=== PATIENT | female | born 1990 | race Two or more races ===

== ENCOUNTER 2016-12-17 20:26 | Emergency (ER) | payer SELFPAY ==
[~2016-12-17] VITALS: Ht 160 cm; Wt 45.8 kg
[2016-12-17 21:14] VITALS: BP 114/79
[2016-12-17] MEDS ORDERED: Dicyclomine HCl 10mg/5ml oral soln ORAL ONE (21:30)
[2016-12-17] MEDS ORDERED: Loperamide 2mg cap ORAL ONE (21:30)
[2016-12-17 21:47] VITALS: BP 108/7
[2016-12-17 21:48] VITALS: BP_SYST 103; BP_SYST 120; BP_DIAS 53; BP_DIAS 70
[2016-12-17] MEDS ORDERED: BENTYL10 MG ORAL (21:50)
[2016-12-17] MEDS ORDERED: LOPERAMIDE2 MG PO (21:50)
[2016-12-17 21:57] VITALS: BP 103/53
--- NOTE | 2016-12-17 22:23 | Emergency Room Report ---
History of Present Illness General Chief Complaint: Diarrhea Source: Patient Present Illness HPI Patient is a 26-year-old female presented after increased diarrhea. Patient gradual onset of symptoms over the past few days. Patient reported having intermittent crampy abdominal pain to the lower abdomen. Patient any fever. She not been having any vomiting. She denied any recent food exposure. Patient recently traveled from . She denied any recent antibiotic use. She denied being . She denied feeling dizzy or lightheaded. Allergies: Coded Allergies: No Known Allergies (Unverified , 12/17/16) Patient History Past Medical History: see triage record Last Menstrual Period: 10 DAYS AGO Now: No : 0 Para: 0 Reviewed Nursing Documentation: PMH: Agreed, PSxH: Agreed Nursing Documentation-PMH Past Medical History: No Stated History Review of Systems All Other Systems: negative except mentioned in HPI Physical Exam Vital Signs Date Time Temp Pulse Resp B/P Pulse Ox O2 Delivery O2 Flow Rate FiO2 12/17/16 21:02 98.1 92 18 111/77 100 Room Air General Appearance: well appearing, no apparent distress, alert, GCS 15 Head: normocephalic, atraumatic ENT: hearing grossly normal, normal voice Neck: full range of motion, supple Respiratory: no respiratory distress, speaking full sentences Cardiovascular #1: normal inspection, regular rate, rhythm Gastrointestinal: normal inspection, non tender, soft Musculoskeletal: normal inspection, back normal, gait/station normal, no calf tenderness Neurologic: normal inspection, alert, oriented x3, responsive, normal gait Psychiatric: mood/affect normal Skin: no rash Medical Decision Making Diagnostic Impression: Primary Impression: Gastroenteritis ER Course Patient presented for abdominal pain. Differential diagnoses included ischemic bowel, appendicitis, perforated viscus, abdominal aortic aneurysm, inferior myocardial infarction, viral gastroenteritis Patient's benign exam and does not appear to require any further imaging or laboratory testing at this time. A urine test was negative. Patient was given Bentyl as well as Imodium. Patient appears to have viral gastroenteritis. Orthostatic vitals were unremarkable. The patient was given prescriptions for Imodium as well as Bentyl. The patient is advised to return if she began having persistent vomiting high fever or bloody stools or other concerns. She is advised dietary modification. Labs Test 12/17/16 21:16 Urine HCG, Qualitative Negative Last Vital Signs Date Time Temp Pulse Resp B/P Pulse Ox O2 Delivery O2 Flow Rate FiO2 12/17/16 21:57 97.9 87 17 103/53 100 Room Air Status: improved Disposition: HOME, SELF-CARE Condition: Stable Scripts Dicyclomine Hcl* (BENTYL*) 10 Mg Capsule 10 MG ORAL FOUR TIMES A DAY, #20 CAP Prov: Meño Britton 12/17/16 Loperamide Hcl (LOPERAMIDE) 2 Mg Capsule 2 MG PO NEEDED for Diarrhea, #20 CAP Prov: Meño Britton 12/17/16 Referrals: NON PHYSICIAN (PCP) Patient Instructions: Viral Gastroenteritis, Adult Meño Britton Dec 17, 2016 22:23
== END 2016-12-17 22:00 | disposition home or self-care (01) ==
LOC: EMR 21:24
DX: K52.9 Noninfective gastroenteritis and colitis, unspecified (principal)
CPT/HCPCS: 81025; 99284

== ENCOUNTER 2016-12-21 11:05 | Emergency (ER) | payer SELFPAY ==
[~2016-12-21] VITALS: Ht 160 cm; Wt 45.8 kg
[~2016-12-21 11:05] MED LIST: BENTYL10 MG ORAL; LOPERAMIDE2 MG PO
[2016-12-21 11:20] VITALS: BP 124/75
[2016-12-21] MEDS ORDERED: ZOFRAN4 M3 ORAL (12:40)
[2016-12-21 12:53] VITALS: BP 112/69
--- NOTE | 2016-12-21 21:14 | Emergency Room Report ---
History of Present Illness General Chief Complaint: General Complaint Source: Patient Present Illness HPI The patient is a 26-year-old female presenting for continued but improving nausea, abdominal pain, and diarrhea. She was seen in this emergency department 3 days prior and diagnosed with gastroenteritis. She was given Imodium which has prevented the diarrhea. Pain is described as a 5 at 10 dull ache to the mid upper abdomen and does not radiate. No known provoking or relieving factors. Patient states that she has a 12 hour flight and is afraid that she will be unable to fly due to these symptoms. Allergies: Coded Allergies: No Known Allergies (Unverified , 12/17/16) Patient History Past Medical History: see triage record Pertinent Family History: none Last Menstrual Period: 12/07/16 Reviewed Nursing Documentation: PMH: Agreed, PSxH: Agreed Nursing Documentation-PMH Past Medical History: No Stated History Review of Systems All Other Systems: negative except mentioned in HPI Physical Exam Vital Signs Date Time Temp Pulse Resp B/P Pulse Ox O2 Delivery O2 Flow Rate FiO2 12/21/16 11:20 97.3 83 18 124/75 100 Room Air Sp02 EP Interpretation: reviewed, normal General Appearance: no apparent distress, alert, GCS 15, non-toxic Head: normocephalic, atraumatic Eyes: bilateral eye PERRL, bilateral eye normal inspection ENT: hearing grossly normal, normal pharynx, no angioedema, normal voice Respiratory: chest non-tender, lungs clear, normal breath sounds, speaking full sentences Cardiovascular #1: regular rate, rhythm, no edema Gastrointestinal: normal bowel sounds, non tender, soft, non-distended, no guarding, no rebound Genitourinary: normal inspection, no CVA tenderness Musculoskeletal: back normal, gait/station normal, normal range of motion, non- tender Neurologic: alert, oriented x3, responsive, motor strength/tone normal, sensory intact, speech normal Psychiatric: judgement/insight normal, memory normal, mood/affect normal, no suicidal/homicidal ideation Skin: normal color, no rash, warm/dry, well hydrated Lymphatic: no adenopathy Medical Decision Making PA Attestation Dr. Gamez is my supervising physician. Patient management was discussed with my supervising physician Diagnostic Impression: Primary Impression: Gastroenteritis ER Course The patient is a 26-year-old female presenting for continued but improving nausea, abdominal pain, and diarrhea Differential diagnoses considered but not limited to: Gastroenteritis, GERD, gastritis, appendicitis, pancreatitis PE: Vitals WNL. NAD. Abdomen: Normal appearance. Non distended. No ecchymosis. Increased BS. No TTP. No McBurney point tenderness. No guarding. No CVA tenderness Pt is given zofran and will FU with PMD. ER precautions given. Pt will continue to take in plenty of fluids. Last Vital Signs Date Time Temp Pulse Resp B/P Pulse Ox O2 Delivery O2 Flow Rate FiO2 12/21/16 12:53 83 17 112/69 100 Room Air 12/21/16 12:52 97.3 Status: improved Disposition: HOME, SELF-CARE Condition: Improved Scripts Ondansetron* (ZOFRAN*) 4 Mg Tablet 4 MG ORAL Q6H Y for Nausea & Vomiting, #15 TAB Prov: HONG LYNNE 12/21/16 Referrals: NOT CHOSEN IPA/MD,REFERRING (PCP) Patient Instructions: Viral Gastroenteritis, Adult Additional Instructions: I discussed my findings with the patient. All questions and concerns have been answered. Treatment and medication compliance have been addressed. I advised the patient that they need to follow up with PMD in 3-5 days. Return to ED if symptoms worsen, new symptoms arise, or if needed for any reason. Patient verbalized understanding of discharge instructions. Due to the patient's current condition, she is unsuitable for long periods of travel until symptoms resolve. HONG LYNNE Dec 21, 2016 21:14
== END 2016-12-21 12:54 | disposition home or self-care (01) ==
LOC: EMR 11:46
DX: K52.9 Noninfective gastroenteritis and colitis, unspecified (principal)
CPT/HCPCS: 99283